=== PATIENT | male | born 1970 | race Caucasian/White ===

== ENCOUNTER 2016-07-09 08:05 | Emergency (ER) | payer BC, OTHER | END 2016-07-09 09:06 | disposition home or self-care (01) | LOC: ED 08:05 | DX: S01.82XA Laceration with foreign body of other part of head, initial encounter (principal); W29.8XXA Contact with other powered hand tools and household machinery, initial encounter; Y93.H3 Activity, building and construction; Y92.69 Other specified industrial and construction area as the place of occurrence of the external cause; Y99.0 Civilian activity done for income or pay ==